=== PATIENT | female | born 1990 | race Caucasian/White ===

== ENCOUNTER 2017-02-26 05:12 | Inpatient (IN) ==
[2017-02-26] MEDS ORDERED: FAMOTIDINE PREMIX 20 MG/50 ML BAG IV ONE (05:53)
[2017-02-26] MEDS ORDERED: CITRIC ACID/SODIUM CITRATE 30ml PO ONE (05:53)
[2017-02-26] MEDS ORDERED: NOZIN NASAL SWAB NAS ONE (05:53)
[2017-02-26] MEDS ORDERED: CEFAZOLIN PREMIX (MC ONLY) 2 GM/50 ML BAG IV ONE (05:53)
[2017-02-26] MEDS: LR 1,000 ML IV SCH ×3 (06:20→08:52)
[2017-02-26] MEDS ORDERED: SALINE FLUSH 10ml SYRINGE ONE (07:07)
[2017-02-26] MEDS ORDERED: MORPHINE SULFATE PF 5mg/10ml INJ (Duramorph) ONE (07:08)
[2017-02-26] MEDS ORDERED: FentaNYL 100 MCG/2 ML INJECTION ONE (07:08)
[2017-02-26] MEDS ORDERED: ONDANSETRON 4 MG/2 ML INJECTION ONE (07:11)
--- NOTE | 2017-02-26 07:18 | Anesthesia Preoperative Report ---
Anesthesia Epidural/Spinal Rec - Date and Time Date and Time: 02/26/2017 Preop Diagnosis: Repeat Procedure: Plan: Spinal - Vital Signs Height: 60 cm Weight: 82.3 kg Vital Signs: Temp Pulse Resp BP Pulse Ox 96.9 F 64 20 110/69 98 02/26/17 06:28 02/26/17 06:34 02/26/17 06:34 02/26/17 06:34 02/26/17 06:34 NPO since: Midnight /Para: P:1 - Medictaions & Allergies Inpatient Medications: Current Medications Lactated Ringer's (Lactated Ringers) 1,000 mls @ 150 mls/hr IV .[id number] [facility] Last Admin: 02/26/17 06:20 Dose: 150 mls/hr Allergies/Adverse Reactions: Allergies Allergy/AdvReac Type Severity Reaction Status Date / Time latex Allergy Intermediate Verified 09/13/11 19:03 - Home Medications Home Medications: Home Medications Medication Instructions Recorded Confirmed Type Ranitidine [Zantac] 1 tab PO DAILY 02/23/17 02/26/17 History - Medical History Gastrointestional: Reports: Gastroesophageal Reflux Disease - Surgical History Reproductive Surgery/Treatment: Reports: Section Anesthesia Reactions: None Hx Family Anesthesia Reaction: No History of Motion Sickness: No - Social History Smoking Status: Former smoker Time spent discussing smoking cessation with patient: 3 to 10 minutes Substance Use Type: does not use Alcohol Intake: former Hx Chewing Tobacco Use: No - Pertinent Findings Lab Data: CBC and BMP 02/26/17 06:05 EKG Rhythm: Normal Sinus Rhythm - Physical Exam Respiratory Exam: lungs clear Cardiovascular Exam: regular rate and rhythm - Airway Assessment Mallampati Score: II TMD: 3 Fingerbreadths Neck Extension: good Overall Assessment: may be difficult intubation - ASA ASA Score: 2 - Discussion Discussion: Discussed risks/options/alternatives of anesthesia and questions answered. Patient consents. Nursing pain assessment noted. Anesthesia Discussion: family member Attestation Statement: Prior to the delivery of any anesthetic medication, I examined the patient, developed the plan, obtained the patient's consent and discussed the risk and benefits of the procedure with the patient/guardian.
[2017-02-26] MEDS ORDERED: ONDANSETRON 4 MG/2 ML INJECTION IVP PRN (07:25)
[2017-02-26] MEDS ORDERED: METOCLOPRAMIDE 10mg/2ml INJECTION IVP PRN (07:25)
[2017-02-26] MEDS ORDERED: NALBUPHINE 10 MG/ML INJECTION IVP PRN (07:25)
[2017-02-26] MEDS ORDERED: NALOXONE 2 MG/2 ML INJECTION PFS IVP PRN (07:25)
[2017-02-26] MEDS: OXYTOCIN DRIP 30 UNIT/500 ML ML IV SCH ×2 (08:18→08:36)
[2017-02-26] MEDS: DiphenhydrAMINE 50 MG/ML INJECTION IVP PRN ×2 (09:49→17:30)
[2017-02-26] MEDS ORDERED: DiphenhydrAMINE 25 MG CAPSULE PO PRN (09:52)
[2017-02-26] MEDS ORDERED: SALINE FLUSH 10ml SYRINGE IVF PRN (09:52)
[2017-02-26] MEDS ORDERED: HYDROCORTISONE 2.5% CREAM 30gm RECTALLY PRN (09:52)
[2017-02-26] MEDS ORDERED: ACETAMINOPHEN 500 MG TABLET PO PRN (09:52)
[2017-02-26] MEDS ORDERED: CALCIUM CARBONATE Chewable 500mg TABLET PO PRN (09:52)
[2017-02-26] MEDS ORDERED: SIMETHICONE 80 MG CHEWABLE TABLET PO PRN (09:52)
--- NOTE | 2017-02-26 10:08 | Operative Note ---
DATE 02/26/2017 PREOPERATIVE DIAGNOSES 1. Term , previous , declines . 2. Undesired fertility. POSTOPERATIVE DIAGNOSES 1. Term , previous , declines . 2. Undesired fertility. PROCEDURE Repeat low transverse section, bilateral tubal ligation ( modified Corine). SURGEON Eliza Rausch MD HOSPITAL STAFF PHARMACIST Patricia Johnston MD ANESTHESIA Combo spinal epidural - Denny Vito, TECHNICAL SUPPORT TECHNICIAN EBL 800 ml. DESCRIPTION OF PROCEDURE Ms. Reeves was brought to the OR and given regional analgesia to good effect. She was placed on the OR table in supine position with left lateral displacement. A Freedman catheter was placed to dependent drain. The abdomen was prepped and draped in the usual sterile fashion. The patient's previous Pfannenstiel scar was excised in an elliptical pattern. The incision was carried down to fascia. Fascia was incised transversely. Fascia was then tented up. This was bluntly and sharply dissected free of rectus muscles. Rectus muscles were bluntly divided. Peritoneum was then tented up. This was sharply entered and then extended vertically. The bladder blade was inserted. The bladder was noted to be well below our area of operation. A low transverse uterine incision made with a sharp knife. There was clear amniotic fluid. Baby was delivered in the vertex presentation without difficulty. Baby was bulb suctioned on the abdomen. Cord was doubly clamped and cut and the baby was given to the pediatric team for care. This is a liveborn male with Apgars of 9/9, weighing 8 pounds 11 ounces. The placenta was then expressed intact. It had a normal configuration and normal-appearing three-vessel cord. The uterus was exteriorized. We swept the uterine cavity clear of membranes. The myometrial incision was then reapproximated with a running locking O Monocryl. There was an area of about two-thirds to the left that appeared to be having an expanding hematoma. This was secured with a [id number]-tk-lhimm suture of the 2-0 Monocryl. We observed very carefully. It remained under good control. We then observed the right fallopian tube to its fimbria, then grasped it at its midpoint with a Guerrero clamp. The distal portion of the tube was then ligated with a simple ligature of 2-0 chromic. The mesosalpinx was pierced with a clamp and two simple ligatures of 2-0 silk were placed on the other side. The isolated section of tube was then excised and sent to pathology. The stumps were carefully observed and found to be hemostatic. We then repeated the procedure in the exact same fashion on the left fallopian tube. Again we made sure all sites were hemostatic. We reinspected our myometrial incision. It remained under good control. We then removed gross blood clots and returned the uterus and tubes to the abdominal cavity. Peritoneum was then reapproximated with a running nonlocking 2-0 Vicryl. Fascia was reapproximated with a running nonlocking 0 Vicryl. Sheng's was reapproximated with running nonlocking 3-0 chromic. Skin edges were reapproximated with a subcuticular style 3-0 undyed Vicryl. The wound was dressed with Steri-Strips and sterile dressings. We made sure that hemostasis remained good at each layer prior to moving on to the next layer. Counts were correct postoperatively x 2. Urine remained clear and free-flowing. Ms. Reeves was then transferred to recovery in stable condition. TRACEY
[2017-02-26] MEDS: IBUPROFEN 800 MG TABLET PO PRN ×2 (11:16→23:06)
[2017-02-26] MEDS: D5LR 1,000 ML IV SCH (11:48)
--- NOTE | 2017-02-26 17:14 | Anesthesia Postoperative Note ---
- Date and Time Date: 02/26/17 Time: 17:13 - Status Patient Participated in Evaluation: Patient Participated in Person Vital Signs: Temp Pulse Resp BP Pulse Ox 97.9 F 60 16 110/60 100 02/26/17 12:55 02/26/17 12:55 02/26/17 12:55 02/26/17 12:55 02/26/17 12:55 Respiratory Function: Airway Patent Cardiovascular Function: Regular Pulse EKG Rhythm: Normal Sinus Rhythm Mental Status: Alert and Oriented Pain Intensity: 0 Hydration: Taking PO Fluids Complications During Recover: None Apparent - Follow-Up Instructions Instructions: Per Surgeon
[2017-02-26] MEDS: HYDROCODONE/APAP 5mg/325mg TABLET PO PRN ×2 (17:31→23:07)
[2017-02-26] MEDS: SIMETHICONE 80 MG CHEWABLE TABLET PO SCH ×3 (20:14→23:09)
--- NOTE | 2017-02-27 08:09 | OB/GYN Progress Note ---
[employer] Progress Note - Subjective Today's Date: 02/27/17 - Objective Vital signs: Temp Pulse Resp BP Pulse Ox 97.9 F 71 16 117/67 99 02/27/17 05:00 02/27/17 05:00 02/27/17 05:00 02/27/17 05:00 02/27/17 05:00 VSS AF Urine Output: good (Freedman to dependent drainage) General: alert and oriented Abdomen: soft Incision: normal (Drsg removed. ), intact Extremities: non-tender Edema: none Laboratory Result: 02/26/17 15:55 - Assessment and Plan (1) S/P repeat low transverse
[2017-02-27] MEDS: HYDROCODONE/APAP 5mg/325mg TABLET PO PRN ×4 (08:23→21:03)
[2017-02-27] MEDS: SIMETHICONE 80 MG CHEWABLE TABLET PO SCH ×5 (08:23→21:04)
[2017-02-27] MEDS: DOCUSATE CALCIUM 240 MG CAPSULE PO SCH (08:24)
--- NOTE | 2017-02-27 09:28 | Labor and Delivery Note ---
- Labor and Delivery Labor and Delivery: Rh FACTOR CONSULT: Mother Blood Type = O NEGATIVE Child Blood Type = O POSITIVE Hgb / Adult Ratio = 0.0001 Will give Rho D Immunglobulin 300mcg IV x 1 dose. Thank you.
[2017-02-27] MEDS ORDERED: RHO(D) IMMUNE GLOBULIN 300 MCG/2 ML INJECTION IVP ONE (09:30)
[2017-02-27] MEDS: IBUPROFEN 800 MG TABLET PO PRN (12:53)
[2017-02-27] MEDS: RANITIDINE 150 MG TABLET PO SCH (12:54)
[2017-02-28] MEDS: HYDROCODONE/APAP 5mg/325mg TABLET PO PRN ×3 (00:46→11:14)
[2017-02-28] MEDS: OXYTOCIN DRIP 30 UNIT/500 ML ML IV SCH (01:52)
[2017-02-28] MEDS: LR 1,000 ML IV SCH (01:53)
[2017-02-28] MEDS: D5LR 1,000 ML IV SCH (01:54)
[2017-02-28] MEDS: IBUPROFEN 800 MG TABLET PO PRN (04:54)
--- NOTE | 2017-02-28 08:10 | Discharge Summary ---
Discharge Plan - Med Rec/Dispo Prescriptions: New Hydrocodone/APAP 5/325 [[place] 5/325] 1 - 2 tab PO Q4H PRN PRN Reason: Pain Ibuprofen [Motrin] 800 mg PO Q8H PRN PRN Reason: Pain Docusate Calcium [Surfak] 240 mg PO DAILY cap Continue Ranitidine [Zantac] 1 tab PO DAILY - Disposition 01 Discharged Home, Self-Care
[2017-02-28] MEDS: DOCUSATE CALCIUM 240 MG CAPSULE PO SCH (08:14)
[2017-02-28] MEDS: SIMETHICONE 80 MG CHEWABLE TABLET PO SCH ×2 (08:24→12:30)
[2017-02-28] MEDS: RANITIDINE 150 MG TABLET PO SCH (12:27)
== END 2017-02-28 12:10 | disposition home or self-care (01) | DRG 766 ==
LOC: MC 05:12
PROVIDERS: ADMIT Obstetrics & Gynecology; ATTEND Obstetrics & Gynecology